=== PATIENT | male | born 1940 | race Caucasian/White ===

== ENCOUNTER 2018-02-04 09:23 | Emergency (ER) | payer OTHER ==
[~2018-02-04] VITALS: Ht 175.3 cm; Wt 87.5 kg
[2018-02-04] MEDS ORDERED: DIOVAN40 MG (10:02)
== END 2018-02-04 16:51 | disposition home or self-care (01) ==
LOC: ER 09:23
DX: K62.5 Hemorrhage of anus and rectum (principal); K57.30 Diverticulosis of large intestine without perforation or abscess without bleeding

== ENCOUNTER 2024-09-04 08:38 | Outpatient (CLI) | payer OTHER ==
[~2024-09-04 08:38] MED LIST: DIOVAN40 MG
== END 2024-09-04 08:42 | disposition home or self-care (01) ==
LOC: TOM 08:38
DX: Z12.11 Encounter for screening for malignant neoplasm of colon (principal)